=== PATIENT | female | born 1960 | race Caucasian/White ===

== ENCOUNTER 2017-04-16 21:51 | Inpatient (IN) ==
[2017-04-16] MEDS ORDERED: FLUMAZENIL 0.5 MG/5 ML VIAL IV ONE (21:58)
[2017-04-16] MEDS ORDERED: SODIUM CHLORIDE 0.9% 1,000 ML IV STA (22:15)
--- NOTE | 2017-04-16 22:17 | EKG Report ---
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
[2017-04-16] MEDS ORDERED: VECURONIUM 10 MG VIAL IV ONE (22:21)
[2017-04-16] MEDS ORDERED: ETOMIDATE 20 MG/10 ML VIAL IV ONE (22:21)
[2017-04-16 22:22] LABS: ABG Base Excess -1.8 MMOL/L (-2.5-2.5); ABG HCO3 22.9 MMOL/L (20-26); ABG Oxygen Saturation 98.5 % (95-100); ABG PH 7.344 (7.35-7.45); ABG TCO2 21.9 MMOL/L (23-27)
[2017-04-16] MEDS ORDERED: SUCCINYLCHOLINE 200 MG/10 ML VIAL ONE (22:23)
[2017-04-16 22:30] LABS: Basophils # 0.1 10*3/uL (0.0-0.2); Basophils % 1.1 % (0.0-0.8); Eosinophils # 0.9 10*3/uL (0.0-0.87); Eosinophils % 13.7 % (0.00-10.9); Hematocrit 33.3 VOL% (35.7-47.0); Hemoglobin 10.5 GM/DL (12.0-16.0); Immature Granulocytes % 0.5 %; Immature Granulocytes Absolute 0.03 #; Lymphocytes # 1.3 10*3/uL (1.4-4.0); Lymphocytes % 19.1 % (21.3-54.2); Mean Corpuscular HGB Conc 31.5 GM/DL (32-36); Mean Corpuscular Hemoglobin 29 PG (27-34); Mean Corpuscular Volume 90.7 FL (87-102); Mean Platelet Volume 9.1 FL (9.6-12.0); Monocytes # 0.7 10*3/uL (0.11-0.8); Monocytes % 10.5 % (1.7-12.7); Neutrophils # 3.6 10*3/uL (1.4-7.4); Neutrophils % 55.1 % (38.7-73.9); Platelet Count 440 T/CUMM (130-400); Red Blood Count 3.67 MC/CUMM (3.8-5.5); Red Cell Distribution Width 14.6 % (9.3-17.3); White Blood Count 6.6 T/CUMM (4-12)
[2017-04-16] MEDS ORDERED: MIDAZOLAM 100 MG in SODIUM CHLORIDE 0.9% 80 ML IV SCH (22:30)
--- NOTE | 2017-04-16 22:40 | Emergency Department Note ---
Molly Redman Mantricia, am scribing for, and in the presence of, Sami Blair MD 22:19. IRossy Alan T, MD, personally performed the services described in this documentation, ascribed by Marcia Barnes in my presence, and it is both accurate and complete 220 . Arrival - Arrival Chief Complaint: Overdose ED Nursing Triage Note: C/O Overdose on unknown medication. 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 Pt was responsive, but lethargic when EMS arrived on scene. Pt has GCS 3/15 at time of arrival. Pt was hypotensive enroute and dopamine was started by EMS. Nonrebreather placed upon arrival. 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 EMS is unknown to what medication pt could have possibly overdosed on because family was not very cooperative. However, empty bottles of [place] and Soma were found by that were filled 8 days ago. EMS arrived to pt in bed responsive but lethargic. Pt was hypotensive enroute and dopamine was started by EMS. Pt's blood pressure at time of consultation was 120/52. No other complaints were reported to ED. Patient's fingerstick prior to arrival was 98. Patient was given 2 mg of Narcan by EMS prior to arrival with no change. Onset (ago): hour(s) Date of Last Menstrual Period: PM Allergies/Adverse Reactions: Allergies Allergy/AdvReac Type Severity Reaction Status Date / Time Sulfa (Sulfonamide Allergy Intermediate RASH Verified 12/30/16 00:27 Antibiotics) Home Medications: Home Medications Medication Instructions Recorded Confirmed Type Carisoprodol 350 mg PO TID 04/16/17 04/16/17 History Diphenoxylate/Atrop 2.5-0.025 1 tablet PO Q6H PRN 04/16/17 04/16/17 History [Lomotil Tab] Hydrocodone/Acetaminophen [[place] 1 each PO Q8HR PRN 04/16/17 04/16/17 History 10-325 Tablet] Hyoscyamine Sulfate [Levsin-Sl] 0.125 mg SL Q6HR PRN 04/16/17 04/16/17 History Losartan [Cozaar] 50 mg PO DAILY 04/16/17 04/16/17 History OXcarbazepine [Oxcarbazepine] 300 mg PO BID 04/16/17 04/16/17 History Ondansetron Odt Tab [Zofran Odt] 4 mg PO Q6H 04/16/17 04/16/17 History Sucralfate 1 gm PO QID 04/16/17 04/16/17 History Zolpidem [Ambien] 10 mg PO BEDTIME 04/16/17 04/16/17 History Review of System - Review of System Constitutional: Present: other (overdose) Eyes: Absent: discharge, pain Respiratory: Absent: cough Gastrointestinal: Absent: abdominal pain, nausea, vomiting Musculoskeletal: Absent: arm pain, back pain, leg pain, neck pain Medical,Surgical,& Family Hx - Medical History Neurology: History of: Seizures - Social History Smoking Status: Never smoker Frequency of Alcohol Use: Unknown Type of Drug Use: Unknown Exam Vital Signs: Vital Signs Temperature 98.0 F 04/16/17 21:51 Pulse Rate 102 H 04/16/17 21:51 Respiratory Rate 23 04/16/17 23:10 Blood Pressure 120/52 04/16/17 21:51 O2 Sat by Pulse Oximetry 93 L 04/16/17 21:51 - General General appearance: lethargic - Head Head exam: Present: atraumatic, normocephalic, normal inspection - Eye Eye exam: Present: normal appearance, PERRL, EOMI - ENT ENT exam: Present: normal exam, normal oropharynx, mucous membranes moist, TM's normal bilaterally, normal external ear exam - Neck Neck exam: Present: normal inspection, full ROM, trachea midline. Absent: tenderness - Chest Chest inspection: Present: normal inspection, symmetric chest wall rise. Absent : tenderness - Respiratory Respiratory exam: Present: normal lung sounds bilaterally - Cardiovascular Cardiovascular exam: Present: regular rate, normal heart sounds, other ( bradypnic) - Abdominal Exam Abdominal exam: Present: soft, normal bowel sounds. Absent: distention, tenderness, guarding, rebound - Extremities Exam Extremities exam: Present: normal inspection, full ROM, normal capillary refill. Absent: tenderness, pedal edema - Back Exam Back exam: Present: normal inspection, full ROM. Absent: tenderness - Neurological Exam Neurological exam: Present: CN II-XII intact, normal gait, reflexes normal - Psychiatric Psychiatric exam: Present: normal affect, normal mood - Skin Skin exam: Present: warm, dry, intact, normal color Course Course Narrative: Due to the patient's low GCS on arrival she was intubated for airway protection The patient's was updated updated to the patient's status. I discussed the case with Dr. Carey who will admit the patient to his service Procedures - Intubation sedative: Etomidate Mg Given: 20 paralytic: Vecuronium Mg Given: 10 Laryngoscope: Ant ET Tube Size: 7.5 ET Tube Uncuffed: Yes Tube Secured Depth (cm): 24 Tube Secured Location: lips Tube Placement Confirmation: visualized tube passing through cords, equal breath sounds bilaterally, no breath sounds over epigastrium, confirmation detector color change Patient Tolerated Procedure: well Intubation Complications: none Results - Labs CBC & BMP: 04/16/17 22:13 04/16/17 22:13 Labs: Laboratory Tests 04/16/17 04/16/17 04/16/17 22:13 22:13 22:13 RBC 3.67 L Hgb 10.5 L Hct 33.3 L MCHC 31.5 L Plt Count 440 H MPV 9.1 L Lymph % (Auto) 19.1 L Eos % (Auto) 13.7 H Baso % (Auto) 1.1 H Lymph # (Auto) 1.3 L Eos # (Auto) 0.9 H Sodium 135 L BUN/Creatinine Ratio 21.00 H Calculated Osmolality 268.1 L Calcium 8.0 L Alkaline Phosphatase 119 H Total Protein 5.8 L Albumin 2.8 L Albumin/Globulin Ratio 0.9 L Urine Nitrate Urine Urobilinogen Urine Leukocytes Salicylates Urine Opiates Screen Acetaminophen 5.6 L Ur Barbiturates Screen U Benzodiazepines Scrn Serum Alcohol < 15 L 04/16/17 04/16/17 04/16/17 22:13 22:13 22:13 RBC Hgb Hct MCHC Plt Count MPV Lymph % (Auto) Eos % (Auto) Baso % (Auto) Lymph # (Auto) Eos # (Auto) Sodium BUN/Creatinine Ratio Calculated Osmolality Calcium Alkaline Phosphatase Total Protein Albumin Albumin/Globulin Ratio Urine Nitrate Positive H Urine Urobilinogen < 2.0 H Urine Leukocytes Small H Salicylates < 2.8 L Urine Opiates Screen Positive H Acetaminophen Ur Barbiturates Screen Positive H U Benzodiazepines Scrn Positive H Serum Alcohol - EKG EKG results: interpreted by RENETTA, WNL, sinus rhythm, normal axis, normal QRS, normal ST/T - Diagnostic Findings Procedure: CT: report reviewed by me (Head: No acute pathologic intracranial process.) Critical Care Time Critical Care Time: Yes Total Critical Care Time: 30 (Intubation) Disposition Clinical Impression: Drug overdose, Acute urinary tract infection, Altered mental status, Respiratory failure Case discussed with: patient's family Disposition: Still a Patient Condition: Critical
[2017-04-16 22:43] LABS: Apearance,Urine CLEAR (Clear); Bacteria,Urine Few /HPF (Few); Bilirubin,Urine Negative (Negative); Blood, Urine Negative (Negative); Glucose,Urine (UA) Negative (Negative); Ketones,Urine Negative (Negative); Nitrite,Urine Positive (Negative); Protein,Urine Negative; RBC,Urine <1 /HPF (0-4); Squamous Epithelial Cell,Urine Occasional /HPF (0-10); Transitional Epi Cells,Urine Occasional /HPF (<1); Urine Color Amber (Yellow); Urine Specific Gravity 1.014 (1.001-1.035); Urine Urobilinogen < 2.0 EU/DL (0.2-1.0); WBC,Urine 24 /HPF (0-6)
[2017-04-16 22:45] LABS: INR 0.9; PT Patient Result 9.5 SECS
[2017-04-16 22:49] LABS: Barbiturates Screen,Urine Positive (Negative); Benzodiazepines Screen,Urine Positive (Negative); Cannabinoid Screen,Urine Negative (Negative); Opiate Screen,Urine Positive (Negative); Phencyclidine Screen,Urine Negative (Negative)
[2017-04-16 22:50] LABS: Alanine Aminotransferase 20 U/L (13-56); Albumin 2.8 G/DL (3.4-5.0); Alkaline Phosphatase 119 U/L (45-117); Aspartate Amino Transferase 24 U/L (0-37); Bilirubin,Total < 0.39 MG/DL (0.2-1.0); Blood Urea Nitrogen 13 MG/DL (7-18); Glucose 82 MG/DL (74-106); Osmolality,Calculated 268.1 MOS/KG (273-304); Potassium 3.9 MMOL/L (3.5-5.1); Sodium 135 MMOL/L (136-145); Total Protein 5.8 G/DL (6.4-8.3); Troponin I Only < 0.015 NG/ML (0.00-0.045)
[2017-04-16] MEDS ORDERED: PROPOFOL 1,000 MG/100 ML BOTTLE IV ONE (23:14)
[2017-04-16] MEDS ORDERED: cefTRIAXone 1,000 MG in SODIUM CHLORIDE 0.9% 100 ML IV STA (23:23)
[2017-04-16] MEDS: PROPOFOL 1,000 MG/100 ML BOTTLE IV SCH (23:30)
[2017-04-16 23:31] LABS: Eosinophils 11 % (0-10); Giant Platelets Few; Lymphocytes 16 % (20-55); Platelet Estimate Increased; Segmented Neutrophils 63 % (50-85); Total Cells Counted 100
[2017-04-17] MEDS ORDERED: DEXTROSE 50% 25 GM/50 ML VIAL IV PRN (00:05)
[2017-04-17] MEDS ORDERED: GLUCAGON 1 MG VIAL IM PRN (00:05)
[2017-04-17] MEDS ORDERED: cefTRIAXone 1,000 MG VIAL ONE (00:24)
--- NOTE | 2017-04-17 00:26 | Hospitalist History & Physical ---
Assessment and Plan (1) Hypertension Status: Chronic Assessment and plan: Hypotensive with this presentation, hold home blood pressure meds Current Visit: Yes (2) Seizure disorder Status: Chronic Assessment and plan: Currently sedated with infusions that will lower her seizure threshold, hold her home medications Current Visit: Yes (3) Drug overdose Status: Acute Assessment and plan: Seems to have had an intentional overdose of [place] and Soma. Initial Tylenol level with low risk of liver injury. We will trend another in 4 hours. Did not respond to Narcan required intubation. While not awake enough to follow commands she does resist the ventilator so she requires a little sedation. After giving some time for her ingestions to clear from her system will attempt to wake her up and assess mental status for extubation. Current Visit: Yes (4) Acute urinary tract infection Status: Acute Assessment and plan: Perhaps incidentally found, but given patient's critically ill status will respect infection as a possible contributor and treat with Rocephin Current Visit: Yes (5) Altered mental status Status: Acute Assessment and plan: Likely secondary to overdose as above. CT head with no acute hemorrhage, EKG largely unremarkable Order d-dimer to rule out pulmonary embolism Current Visit: Yes (6) Respiratory failure Status: Acute Assessment and plan: Hypoxemic and hypercapnic respiratory failure secondary to drug overdose Mechanical ventilation until ingestions clear out of her system Rule out pulmonary embolism Current Visit: Yes History of Present Illness Chief complaint: Altered mental status History of present illness: Ms. Figueroa is a 56 year old female with past medical history of hypertension, chronic back pain, seizure disorder, irritable bowel syndrome that presented with a chief complaint of altered mental status per EMS and her . She was not able to participate in her own history and this was taken from discussion with emergency department providers as her had left the bedside. Onset sudden. Duration a few short hours. Not relieved by 2 mg Narcan given in the field. Associated with bradypnea, hypoxemia, hypotension. Patient was found down on the floor by her unresponsive and did not appear to be breathing very well. She was seen normal shortly before that this evening. Her brought in her pill bottles and of note she has recently been prescribed 180 tablets of [place] 10m tablets on 03/25 and 90 tablets on 04/08. She was also prescribed 90 tablets of Soma on 04/08. It looks like most of these pills are now gone. EMS performed a fingerstick which was normal and started a dopamine infusion and nonrebreather oxygen. Upon arrival to the [place] emergency department given the failure of Narcan to reverse her symptoms and her obtunded state she was intubated for airway protection. I have reviewed the workup performed in the emergency department including lab and imaging data. I discussed her case with emergency department providers. Home Medications Medication Instructions Recorded Confirmed Type Carisoprodol 350 mg PO TID 04/16/17 04/16/17 History Diphenoxylate/Atrop 2.5-0.025 1 tablet PO Q6H PRN 04/16/17 04/16/17 History [Lomotil Tab] Hydrocodone/Acetaminophen [[place] 1 each PO Q8HR PRN 04/16/17 04/16/17 History 10-325 Tablet] Hyoscyamine Sulfate [Levsin-Sl] 0.125 mg SL Q6HR PRN 04/16/17 04/16/17 History Losartan [Cozaar] 50 mg PO DAILY 04/16/17 04/16/17 History OXcarbazepine [Oxcarbazepine] 300 mg PO BID 04/16/17 04/16/17 History Ondansetron Odt Tab [Zofran Odt] 4 mg PO Q6H 04/16/17 04/16/17 History Sucralfate 1 gm PO QID 04/16/17 04/16/17 History Zolpidem [Ambien] 10 mg PO BEDTIME 04/16/17 04/16/17 History Allergies Allergy/AdvReac Type Severity Reaction Status Date / Time Sulfa (Sulfonamide Allergy Intermediate RASH Verified 12/30/16 00:27 Antibiotics) Medical,Surgical,& Family Hx - Medical History Cardio: History of: Hypertension Neurology: History of: Seizures Gastrointestinal: History of: GI Problems (Irritable bowel syndrome) Musculoskeletal: History of: Back/Neck Problems - Surgical History Abdominal Surgeries: Surgical HX of: Abdominal Surgery - Family History Additional Family History: Unable to obtain due to intubation - Social History Smoking Status: Never smoker Frequency of Alcohol Use: Unknown Type of Drug Use: Unknown Marital Status: Lives With:: Spouse Functional capacity: independent ambulation ROS unobtainable: due to endotracheal tube Exam - Constitutional Vitals: Period Temp Pulse Resp BP Sys/Chandler Pulse Ox Last 24 Hr 98.0 F-98.0 F 77-102 08-29 116-120/52-70 93 General appearance: other (Middle-aged white female lying on stretcher, intubated with nonpurposeful movement) Exam: - Eye Eye exam: [Present: EOMI. Absent: conjunctival injection, scleral icterus Pupils: Present: ANIRUDH] - ENT ENT exam: [Present: normal external ear exam, normal oropharynx] - Expanded ENT Exam Mouth exam: Present: [moist, ET tube in place] - Neck Neck exam: Present: [normal inspection. Absent: lymphadenopathy, thyromegaly] - Respiratory Respiratory exam: Present: [clear to auscultation bilaterally]. Absent: [ accessory muscle use, rales, rhonchi, wheezes] - Cardiovascular Cardiovascular exam: Present: [regular rate and rhythm]. Absent: [diastolic murmur, systolic murmur] - Expanded Cardiovascular Exam Peripheral pulses: [2+: posterior tibialis (L), posterior tibialis (R)] - GI/Abdominal GI/Abdominal exam: Present: [normal bowel sounds, soft, midline abdominal scar noted.] Absent: [distended, hyperactive bowel sounds, hypoactive bowel sounds, organomegaly, tenderness, rebound] - Extremities Exam Extremities exam: [Absent: edema] - Neurological Exam Neurological exam: [Present: Sedated and intubated, does not follow commands but flails her arms, opens eyes to stimulation] - Skin Skin exam: [Present: warm, dry. Absent: diaphoretic, rash] Results - Labs CBC & BMP: 04/16/17 22:13 04/16/17 22:13 - EKG EKG results: sinus rhythm - Diagnostic Findings Procedure: Chest x-ray: report reviewed by me, CT: report reviewed by me
[2017-04-17] MEDS ORDERED: SODIUM CHLORIDE 0.9% 1,000 ML IV ONE (01:21)
[2017-04-17] MEDS: DEXTROSE 5% NACL 0.45% 1,000 ML IV SCH ×2 (01:33→15:06)
[2017-04-17] MEDS: PROPOFOL 1,000 MG/100 ML BOTTLE IV SCH (02:44)
[2017-04-17 03:10] LABS: Basophils % 0.6 % (0.0-0.8); Eosinophils # 0.5 10*3/uL (0.0-0.87); Eosinophils % 7.2 % (0.00-10.9); Hematocrit 28.9 VOL% (35.7-47.0); Immature Granulocytes % 0.5 %; Immature Granulocytes Absolute 0.03 #; Lymphocytes # 0.9 10*3/uL (1.4-4.0); Lymphocytes % 13.7 % (21.3-54.2); Mean Corpuscular HGB Conc 31.1 GM/DL (32-36); Mean Corpuscular Hemoglobin 28 PG (27-34); Mean Platelet Volume 9.6 FL (9.6-12.0); Monocytes # 0.5 10*3/uL (0.11-0.8); Monocytes % 6.9 % (1.7-12.7); Neutrophils # 4.6 10*3/uL (1.4-7.4); Neutrophils % 71.1 % (38.7-73.9); Platelet Count 394 T/CUMM (130-400); Red Blood Count 3.21 MC/CUMM (3.8-5.5); Red Cell Distribution Width 14.6 % (9.3-17.3); White Blood Count 6.5 T/CUMM (4-12)
[2017-04-17 03:34] LABS: ABG Base Excess -1.7 MMOL/L (-2.5-2.5); ABG HCO3 22.7 MMOL/L (20-26); ABG Oxygen Saturation 98.8 % (95-100); ABG PCO2 36.9 MM HG (35-48); ABG PH 7.407 (7.35-7.45); ABG TCO2 23.8 MMOL/L (23-27); Allen Test Positive; Pt O2 Delivery Device Ventilator
[2017-04-17 03:48] LABS: Calcium 7.8 MG/DL (8.5-10.1); Magnesium 2.1 MG/DL (1.8-2.4); Thyroid Stimulating Hormone 0.94 uIU/ml (0.358-3.74)
[2017-04-17] MEDS: INSULIN LISPRO 100 UNIT/ML SUBCUT SCH ×3 (05:46→18:32)
--- NOTE | 2017-04-17 07:08 | CT Report ---
CT of the head without contrast. Indication: Altered mental status. No prior study. There is a preliminary report from [facility]. There is a partial into sella. The ventricles and sulci are normally prominent for the patient's age. There is no mass effect, midline shift, or area of hemorrhage. No cortical infarct is seen at this time. There is mild mucosal thickening and scattered mucus debris within the paranasal sinuses. The mastoid air cells are clear. The calvarium is intact. A displaced nasal bone fracture is seen. This could be acute or chronic. There is no associated soft tissue swelling. Correlation with any history of trauma recommended. Impression: Mild paranasal sinus disease. No acute intracranial process is seen. Nasal fracture, undetermined age. The CT exam was performed using one or more of the following dose reduction techniques: Automated exposure control, adjustment of the mA and/or kV according to patient size, or use of iterative reconstruction technique. PROCEDURE INTERPRETED AT [facility] DEPARTMENT OF RADIOLOGY Final Report Signed by: Dr. Margo Gann
--- NOTE | 2017-04-17 08:08 | XRay Report ---
Portable chest. Indication: Shortness of breath. Status post intubation. Comparison: December 30, 2016. The heart is normal in size. An endotracheal tube has been placed and is in satisfactory position. The pulmonary vasculature is normal. The left lung is clear. There is scarring seen at the right upper lung field laterally. There is patchy scarring versus developing atelectasis at the right lung base. Osseous structures are stable, with degenerative changes at both shoulders. Impression: Scarring of the right lung. Atelectasis in the right base cannot be excluded. Satisfactory endotracheal tube placement. PROCEDURE INTERPRETED AT [facility] DEPARTMENT OF RADIOLOGY Final Report Signed by: Dr. Margo Gann
--- NOTE | 2017-04-17 08:17 | Pulmonology Consult Note ---
Assessment and Plan (1) Acute urinary tract infection Status: Acute Assessment and plan: Agree with empiric Rocephin. Current Visit: Yes (2) Drug overdose Status: Acute Assessment and plan: Primarily due to [place]. Had other positive results of her urine. Multidrug overdose. Will need psychiatric evaluation once she is off the ventilator. Not sure whether this was intentional but certainly it appears that way. Current Visit: Yes (3) Respiratory failure Status: Acute Assessment and plan: ABGs look good. Will reduce FiO2 and start weaning trials. We need to hold sedation Current Visit: Yes (4) Seizure disorder Status: Chronic Assessment and plan: Continue her seizure medications which apparently is oxcarbazepine. Current Visit: Yes History of Present Illness Chief complaint: Respiratory failure, overdose History of present illness: Ms. Figueroa is a 56 year old female who has chronic back pain. She apparently took an overdose of [place] last night. Also had some Soma. Her urine screen was positive for benzodiazepines in addition to narcotics. She was found down at home on the floor by her . Brought into the emergency room. She did not respond to Narcan. She was intubated and placed on the ventilator. I was asked to see her for ventilator management. Patient has a history of seizure disorder hypertension and apparently has an acute urinary tract infection. Home Medications Medication Instructions Recorded Confirmed Type Carisoprodol 350 mg PO TID 04/16/17 04/16/17 History Diphenoxylate/Atrop 2.5-0.025 1 tablet PO Q6H PRN 04/16/17 04/16/17 History [Lomotil Tab] Hydrocodone/Acetaminophen [[place] 1 each PO Q8HR PRN 04/16/17 04/16/17 History 10-325 Tablet] Hyoscyamine Sulfate [Levsin-Sl] 0.125 mg SL Q6HR PRN 04/16/17 04/16/17 History Losartan [Cozaar] 50 mg PO DAILY 04/16/17 04/16/17 History OXcarbazepine [Oxcarbazepine] 300 mg PO BID 04/16/17 04/16/17 History Ondansetron Odt Tab [Zofran Odt] 4 mg PO Q6H 04/16/17 04/16/17 History Sucralfate 1 gm PO QID 04/16/17 04/16/17 History Zolpidem [Ambien] 10 mg PO BEDTIME 04/16/17 04/16/17 History Allergies Allergy/AdvReac Type Severity Reaction Status Date / Time Sulfa (Sulfonamide Allergy Intermediate RASH Verified 12/30/16 00:27 Antibiotics) ROS unobtainable: due to endotracheal tube Exam (Pulmonay) H&P - Constitutional Vitals: Period Temp Pulse Resp BP Sys/Chandler Pulse Ox Last 24 Hr 97.4 F-98.0 F 60-102 10-28 82-157/51-87 93-100 Exam: Systolic blood pressure around 90. Vital signs otherwise normal. Pupils react to light. Orotracheal tube in place. Patient does nod slowly to questions. Moving all 4 extremities. Chest is clear equal breath sounds. Heart normal rate and rhythm no murmurs. Abdomen soft nontender no masses. Bowel sounds present. Extremities no clubbing cyanosis or edema. Calves nontender. Medical,Surgical,& Family Hx - Medical History Cardio: History of: Hypertension Psychological: History of: Anxiety Disorders, Depression Neurology: History of: Seizures Renal: History of: Renal Failure (history of acute renal failure) Genitourinary: History of: Bladder Problem, Problems (difficulty urinating) Gastrointestinal: History of: GI Problems (Irritable bowel syndrome. Removed 55 % of stomach due to ulceration) Musculoskeletal: History of: Back/Neck Problems Hematology: History of: Anemia - Surgical History Abdominal Surgeries: Surgical HX of: Abdominal Surgery, Cholecystectomy, Colonoscopy, EGD Reproductive Surgeries: Surgical HX of;: Hysterectomy Orthopedic Surgeries: Surgical HX of;: Implanted Devices (2 screws in R thumb) - Social History Smoking Status: Former smoker Frequency of Alcohol Use: Unknown Type of Drug Use: Unknown Results - Labs CBC & BMP: 04/17/17 01:38 04/17/17 01:38 Lab Results: I have reviewed the past 24 hour labs - Diagnostic Findings Procedure: Chest x-ray: image reviewed by me (Lungs are clear. ET tube in good position.)
[2017-04-17] MEDS ORDERED: ONDANSETRON 4 MG/2 ML VIAL ONE (09:19)
--- NOTE | 2017-04-17 09:36 | Hospitalist Progress Note ---
Hospitalist: Subjective Interval history: Subjective: No overnight acute event. On Vent On sedation. No fever, vomting or hematuria reported from staff research associate. Objective: VS noted. General: Intubated, On sedation. HEENT: NT AC EOMI. Normal teeth and lips. ET tube in place. Lungs: B/l decreased breath sound at lung base. Heart: RRR, no gallops. Abd: +BS. ND Skin: Pale. No edema Neuro: Sedated. Lab result: UA showed UTI. Urine drug screen positive for benzo, opiates and barbiturates. Assessment: Acute respiratory failure due to drug overdose Acute encephalopathy UTI Seizure disorder Plan: I reviewed pt's lab results. I reviewed pt's CXR report and image. I discussed with RN in regarding pt's clinical status. Continue Vent support and sedation. Consult Pulm. Continue rocephin for UTI. F/u culture results. Resume home meds appropriately. When pt's mental status back to normal baseline, will eval pt for SI. Remain in ICU today. Time spent: 35 min including chart reivew as pt is new to me. Exam - Constitutional Vitals: Period Temp Pulse Resp BP Sys/Chandler Pulse Ox Last 24 Hr 97.4 F-98.0 F 60-102 10-29 82-157/51-87 93-100 Results - Labs CBC & BMP: 04/17/17 01:38 04/17/17 01:38
[2017-04-17] MEDS: ONDANSETRON 4 MG/2 ML VIAL IV PRN ×2 (10:06→16:06)
[2017-04-17 10:26] LABS: ABG Base Excess -1.1 MMOL/L (-2.5-2.5); ABG HCO3 23.5 MMOL/L (20-26); ABG PCO2 27.1 MM HG (35-48); ABG TCO2 19.2 MMOL/L (23-27); Allen Test Positive; Pt O2 Delivery Device Ventilator
[2017-04-17] MEDS: LANSOPRAZOLE ODT 30 MG TABLET PER TUBE SCH (11:01)
[2017-04-17] MEDS: DEXT 5% NACL 0.45% KCL 20 MEQ 20 MEQ/1,000 ML BAG IV SCH ×2 (11:07→20:05)
[2017-04-17] MEDS: ENOXAPARIN 40 MG/0.4 ML SYRINGE SUBCUT SCH (11:07)
[2017-04-17 11:48] LABS: ABG Base Excess -1.7 MMOL/L (-2.5-2.5); ABG Oxygen Saturation 97.3 % (95-100); ABG PCO2 25.3 MM HG (35-48); ABG PH 7.512 (7.35-7.45); ABG TCO2 18.3 MMOL/L (23-27)
[2017-04-18] MEDS: INSULIN LISPRO 100 UNIT/ML SUBCUT SCH ×4 (00:12→18:48)
[2017-04-18] MEDS ORDERED: LIDOCAINE 1% 20 ML VIAL IM ONE (01:00)
[2017-04-18] MEDS ORDERED: cefTRIAXone 1,000 MG in SODIUM CHLORIDE 0.9% 100 ML IV SCH (01:00)
[2017-04-18] MEDS ORDERED: cefTRIAXone 1,000 MG VIAL IM ONE (01:00)
[2017-04-18 05:05] LABS: Basophils % 0.7 % (0.0-0.8); Eosinophils # 0.1 10*3/uL (0.0-0.87); Hemoglobin 9.4 GM/DL (12.0-16.0); Immature Granulocytes % 0.7 %; Immature Granulocytes Absolute 0.04 #; Lymphocytes # 0.9 10*3/uL (1.4-4.0); Lymphocytes % 14.8 % (21.3-54.2); Mean Corpuscular HGB Conc 32.4 GM/DL (32-36); Mean Corpuscular Hemoglobin 28 PG (27-34); Mean Corpuscular Volume 87.6 FL (87-102); Mean Platelet Volume 9.2 FL (9.6-12.0); Monocytes # 0.5 10*3/uL (0.11-0.8); Monocytes % 8.7 % (1.7-12.7); Neutrophils # 4.4 10*3/uL (1.4-7.4); Neutrophils % 74.1 % (38.7-73.9); Platelet Count 426 T/CUMM (130-400); Red Blood Count 3.31 MC/CUMM (3.8-5.5); Red Cell Distribution Width 14.7 % (9.3-17.3); White Blood Count 5.9 T/CUMM (4-12)
[2017-04-18 05:43] LABS: % Iron Saturation 8.2 % (18-50); Calcium 8.3 MG/DL (8.5-10.1); Ferritin 15.4 ng/ml (8-252); Osmolality,Calculated 274.5 MOS/KG (273-304); Potassium 3.5 MMOL/L (3.5-5.1)
[2017-04-18 05:49] LABS: Giant Platelets Few; Hypochromasia 1+; Ovalocytes Slight; Platelet Estimate Adequate
--- NOTE | 2017-04-18 08:20 | Pulmonology Progress Note ---
Pulmonary - PN: Subj Interval history: This 56-year-old lady came in with an overdose of [place] primarily. She was ventilated. We extubated her yesterday. Seems to be doing well now. She tells me she has a nebulizer at home but denies having asthma or any chronic lung disease. She says she has pneumonia frequently. At the present time her oxygen saturation is normal on room air. She stable from a pulmonary standpoint. I will sign off. Exam (Progress Note) - Constitutional Vitals: Period Temp Pulse Resp BP Sys/Chandler Pulse Ox Last 24 Hr 97.5 F-99.2 F 79-101 14-35 105-162/73-106 92-100 Exam: Patient's alert and oriented. Vital signs normal. O2 sat 98% room air. Pupils react to light. Throat clear. Neck supple no bruits. Chest is clear equal breath sounds. Heart normal rate and rhythm no murmurs. Abdomen soft nontender no masses. Extremities no clubbing cyanosis edema. Calves nontender. Results - Labs CBC & BMP: 04/18/17 04:18 04/18/17 04:18 Lab Results: I have reviewed the past 24 hour labs Assessment and Plan (1) Acute urinary tract infection Status: Acute Assessment and plan: Agree with empiric Rocephin. Current Visit: Yes (2) Drug overdose Status: Acute Assessment and plan: Primarily due to [place]. Had other positive results of her urine. Multidrug overdose. Will need psychiatric evaluation once she is off the ventilator. Not sure whether this was intentional but certainly it appears that way. 04/18/2017 patient alert off ventilator on room air. Stable from pulmonary standpoint. Signing off. Current Visit: Yes (3) Respiratory failure Status: Resolved Assessment and plan: ABGs look good. Will reduce FiO2 and start weaning trials. We need to hold sedation 04/18/2017 this has resolved. It was caused by opiate overdose. Current Visit: Yes (4) Seizure disorder Status: Chronic Assessment and plan: Continue her seizure medications which apparently is oxcarbazepine. Current Visit: Yes
[2017-04-18] MEDS: ENOXAPARIN 40 MG/0.4 ML SYRINGE SUBCUT SCH (08:37)
[2017-04-18] MEDS: LANSOPRAZOLE ODT 30 MG TABLET PER TUBE SCH (08:37)
[2017-04-18] MEDS: ONDANSETRON 4 MG/2 ML VIAL IV PRN (10:36)
[2017-04-18] MEDS: OXcarbazepine 300 MG TABLET PO SCH ×2 (10:36→21:50)
[2017-04-18] MEDS: ONDANSETRON ODT 4 MG TABLET PO SCH ×3 (10:39→22:51)
[2017-04-18] MEDS: DESITIN 4OZ/NYSTATIN 15 GRAM MIXTURE PASTE TOP SCH ×2 (13:03→22:49)
[2017-04-18] MEDS: SUCRALFATE 1 GM TABLET PO SCH ×3 (13:03→21:50)
--- NOTE | 2017-04-18 13:32 | Hospitalist Progress Note ---
Assessment and Plan (1) Respiratory failure Status: Resolved Assessment and plan: The patient was admitted to intensive care unit due to respiratory compromise. She is now alert awake and extubated. The patient is conversational. The patient states that she is willing to have assessment with [facility] and possibly be been transferred there. The patient's asked us to be sure that her high blood pressure and seizure medication is continued. Orders were given. [place] should see the patient today. The patient will be ready for transfer tomorrow. Current Visit: Yes (2) Drug overdose Status: Acute Current Visit: Yes (3) Hypertension Status: Chronic Current Visit: Yes (4) Seizure disorder Status: Chronic Current Visit: Yes Hospitalist: Subjective Interval history: The patient is now off the ventilator. The patient is rational but the affect is depressed. She has an unusual speaking style with her at the bedside. They alternate between being over joyful that she is receiving help for her polysubstance problem; and at the same time they appear to be manipulative as far as desiring increase oral pain medication. The patient states "I do not have a pill problem, I have a pain problem". The patient is scheduled to have [facility] assessment today. Exam - Constitutional Vitals: Period Temp Pulse Resp BP Sys/Chandler Pulse Ox Last 24 Hr 97.5 F-98.9 F 79-101 14-31 128-164/78-111 92-97 Exam: Constitutional System: Mild distress. No tremulousness. Head: Normocephalic, atraumatic. Ears, Nose and Throat System: No evidence of Otitis or Mastoiditis. No epistaxis or discharge Eyes System: Pupils equal, round, and reactive. Extraocular muscles intact. Neck: Supple, without adenopathy, No jugular venous distention. No thyromegaly , neck mass, or prior surgery apparent. Respiratory System: Chest clear to auscultation. Cardiovascular System: Heart with regular rate and rhythm. No murmur. GI System: Abdomen soft, nontender. Normo active bowel sounds present. Musculoskeletal System: limbs with no pedal edema. Full distal pulses. Neurological System: No discernable sensory deficit. No aphasia Psychiatric System: Conversation is pressed affect Results - Labs CBC & BMP: 04/18/17 04:18 04/18/17 04:18 Lab Results: I have reviewed the past 24 hour labs
[2017-04-18] MEDS: CIPROFLOXACIN 500 MG TABLET PO SCH ×2 (13:41→21:50)
[2017-04-18] MEDS: PANTOPRAZOLE 40 MG TABLET PO SCH ×2 (13:42→21:50)
[2017-04-19] MEDS: INSULIN LISPRO 100 UNIT/ML SUBCUT SCH ×4 (00:19→18:07)
[2017-04-19] MEDS: ONDANSETRON ODT 4 MG TABLET PO SCH ×5 (03:03→22:26)
--- NOTE | 2017-04-19 08:22 | Hospitalist Progress Note ---
Assessment and Plan (1) Respiratory failure Status: Resolved Assessment and plan: The patient was admitted to intensive care unit due to respiratory compromise. She is now alert awake and extubated. The patient is conversational. The patient was initially willing to accept mobile assessment with [facility] but declined to do so once the [facility] personnel arrived. The patient's asked us to be sure that her high blood pressure and seizure medication is continued, and this was confirmed. The patient will transfer to the floor today and be ready for discharge back to her primary care physician tomorrow. Will recheck electrolytes in the morning. Current Visit: Yes (2) Drug overdose Status: Acute Current Visit: Yes (3) Hypertension Status: Chronic Current Visit: Yes (4) Seizure disorder Status: Chronic Current Visit: Yes Hospitalist: Subjective Interval history: This patient was admitted to the hospital with metabolic encephalopathy primarily due to overtaking [place]. The patient states that she has chronic low and upper back as well as neck pain. The patient required intubation and mechanical ventilation for 24 hours and then was weaned from the ventilator successfully. The patient was offered assessment by [facility]. The patient and her state that she does not have a pill problem but instead has an pain problem. The patient and were not interested in further evaluation of opiate overuse. I think the best we can offer them is another night in the hospital to help reduce emotional lability and reevaluate tomorrow to see if she will accept inpatient treatment [facility]. If she continues to decline that service she would be ready for discharge home and follow-up with her usual primary care physician. I think it is unlikely that at this age she will gain new insight into her own psychology. Exam - Constitutional Vitals: Period Temp Pulse Resp BP Sys/Chandler Pulse Ox Last 24 Hr 98.4 F-98.8 F 75-96 13-24 126-164/70-125 77-98 Exam: Constitutional System: No distress. No tremulousness. Head: Normocephalic, atraumatic. Ears, Nose and Throat System: No evidence of Otitis or Mastoiditis. No epistaxis or discharge Eyes System: Pupils equal, round, and reactive. Extraocular muscles intact. Neck: Supple, without adenopathy, No jugular venous distention. No thyromegaly , neck mass, or prior surgery apparent. Respiratory System: Chest clear to auscultation. Cardiovascular System: Heart with regular rate and rhythm. No murmur. GI System: Abdomen soft, nontender. Normo active bowel sounds present. Musculoskeletal System: limbs with no pedal edema. Full distal pulses. Neurological System: No discernable sensory deficit. No aphasia Psychiatric System: Conversation is less pressed today Results - Labs CBC & BMP: 04/18/17 04:18 04/18/17 04:18 Lab Results: I have reviewed the past 24 hour labs
[2017-04-19] MEDS: SUCRALFATE 1 GM TABLET PO SCH ×4 (08:34→20:37)
[2017-04-19] MEDS: CIPROFLOXACIN 500 MG TABLET PO SCH ×2 (08:35→20:38)
[2017-04-19] MEDS: DESITIN 4OZ/NYSTATIN 15 GRAM MIXTURE PASTE TOP SCH ×2 (08:36→20:39)
[2017-04-19] MEDS: OXcarbazepine 300 MG TABLET PO SCH ×2 (08:36→20:38)
[2017-04-19] MEDS: ENOXAPARIN 40 MG/0.4 ML SYRINGE SUBCUT SCH (08:36)
[2017-04-19] MEDS: LOSARTAN 50 MG TABLET PO SCH (08:36)
[2017-04-19] MEDS: PANTOPRAZOLE 40 MG TABLET PO SCH ×2 (08:36→20:38)
[2017-04-19] MEDS ORDERED: NIFEdipine 10 MG CAPSULE PO PRN (11:31)
[2017-04-20] MEDS: INSULIN LISPRO 100 UNIT/ML SUBCUT SCH ×3 (00:46→12:37)
[2017-04-20] MEDS: ONDANSETRON ODT 4 MG TABLET PO SCH ×3 (04:21→09:46)
[2017-04-20 06:19] LABS: Calcium 8.1 MG/DL (8.5-10.1); Magnesium 2.1 MG/DL (1.8-2.4); Potassium 3.1 MMOL/L (3.5-5.1)
[2017-04-20] MEDS: LOSARTAN 50 MG TABLET PO SCH (08:40)
[2017-04-20] MEDS: CIPROFLOXACIN 500 MG TABLET PO SCH (08:40)
[2017-04-20] MEDS: ENOXAPARIN 40 MG/0.4 ML SYRINGE SUBCUT SCH (08:41)
[2017-04-20] MEDS: PANTOPRAZOLE 40 MG TABLET PO SCH (08:41)
[2017-04-20] MEDS: OXcarbazepine 300 MG TABLET PO SCH (08:41)
[2017-04-20] MEDS: DESITIN 4OZ/NYSTATIN 15 GRAM MIXTURE PASTE TOP SCH (08:41)
[2017-04-20] MEDS: SUCRALFATE 1 GM TABLET PO SCH ×2 (08:41→13:51)
[2017-04-20 11:06] VITALS: BP 141/79
--- NOTE | 2017-04-20 13:42 | Discharge Summary ---
Hospital Course - Hospital Course Hospital Course: Ms. Figueroa was admitted to the hospital after a suspected drug overdose secondary to Soma and [place]. Patient was intubated for airway protection after she did not respond to Narcan. She is found to have an acute urinary tract infection with which she was started initially on Rocephin. Patient was seen in consultation by pulmonary while she was in the intensive care unit. Pulmonary managed events protocol and weaning and the patient was eventually extubated. She denied intentionally taking excessive medications and also denied suicidal ideation. She was seen by [facility] for psychiatric evaluation however refused their care. Once stable patient was transferred to the floor. Urine cultures returned Klebsiella pneumonia, and the patient was discharged with appropriate medication and duration for this. I explained to the patient that she must discontinue Huntington and Soma and contact her pain management doctor immediately once discharged for instructions on continuation. She and her voiced understanding. At discharge she had met maximum benefit of hospitalization. I spent 36 minutes coordinating this discharge. - Time spent with patient Time with patient DS: Greater than 30 minutes Discharge Plan - Discharge Data Disposition: Disch To Home/Self Care Condition at Discharge: Stable Discharge Diet: advance to your usual diet Activity: resume usual activities as tolerated - Discharge Medications New Ciprofloxacin Tab [Cipro Tab] 500 mg PO Q12HR #5 tablet Continue Sucralfate 1 gm PO QID OXcarbazepine [Oxcarbazepine] 300 mg PO BID Losartan [Cozaar] 50 mg PO DAILY Ondansetron Odt Tab [Zofran Odt] 4 mg PO Q6H Diphenoxylate/Atrop 2.5-0.025 [Lomotil Tab] 1 tablet PO Q6H PRN PRN Reason: Diarrhea Zolpidem [Ambien] 10 mg PO BEDTIME Hyoscyamine Sulfate [Levsin-Sl] 0.125 mg SL Q6HR PRN PRN Reason: Pain Promethazine HCl [Phenergan] 25 mg PO QID PRN PRN Reason: Nausea Discontinued Carisoprodol 350 mg PO TID Hydrocodone/Acetaminophen [H[place]ton 10-325 Tablet] 1 each PO Q8HR PRN PRN Reason: Pain - Follow Up or Referral - Forms/Instructions Exam - Constitutional Vitals: Period Temp Pulse Resp BP Sys/Chandler Pulse Ox Last 24 Hr 97 F-98.8 F 73-82 16-20 128-152/73-98 94-97 General appearance: normal weight, no acute distress - Head Head exam: Present: normal inspection, normocephalic, atraumatic - Eye Eye exam: Present: EOMI Pupils: Present: ANIRUDH - ENT ENT exam: Present: normal exam - Neck Neck exam: Present: normal inspection - Respiratory Respiratory exam: Present: clear to auscultation bilaterally. Absent: accessory muscle use, prolonged expiratory phase, wheezes - Cardiovascular Cardiovascular exam: Present: regular rate and rhythm. Absent: bradycardia, irregular rhythm, systolic murmur - GI/Abdominal GI/Abdominal exam: Present: normal bowel sounds. Absent: ascites, hypoactive bowel sounds, tenderness - Extremities Exam Extremities exam: Present: normal inspection Discharge Results Procedures and tests throughout hospitalization: Pending Orders 04/16/17 22:15 Blood Culture Stat 04/18/17 04:18 Antibody Identification Routine Red Blood Cells Leuko Red Routine Type and Screen IN AM Labs on day of discharge: Labs from last 24 hours 04/20/17 04/20/17 04/20/17 12:10 05:23 04:30 Sodium 136 Potassium 3.1 L Chloride 99 Carbon Dioxide 27 Anion Gap 13.1 BUN 1 L Creatinine 0.30 L GFR Calculation 118 BUN/Creatinine Ratio 3.00 L Glucose 101 POC Glucose 130 H 114 H Calculated Osmolality 267.0 L Calcium 8.1 L Magnesium 2.1 Crossmatch 04/19/17 04/19/17 04/18/17 19:41 16:42 04:18 Sodium Potassium Chloride Carbon Dioxide Anion Gap BUN Creatinine GFR Calculation BUN/Creatinine Ratio Glucose POC Glucose 125 H 100 Calculated Osmolality Calcium Magnesium Crossmatch See Detail Preliminary micro results at discharge 04/17/17 01:38 Blood Culture - Preliminary Blood No growth at 3 days 04/17/17 01:38 Blood Culture - Preliminary Blood No growth at 3 days DS: Provider Date of admission: 04/16/17 23:54 Primary care physician: . 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
== END 2017-04-20 16:31 | disposition home or self-care (01) | DRG 812 ==
LOC: N.ED 21:51 → N.EDINP 23:54 → SUATTDRO 23:54 → N.ICU 04-17 00:40 → N.4E 04-19 11:26
PROVIDERS: ADMIT Student in an Organized Health Care Education/Training Program; ATTEND Internal Medicine